=== PATIENT | male | born 1990 | race Two or more races ===

== ENCOUNTER 2019-06-25 01:48 | Emergency (ER) | payer SELFPAY ==
[~2019-06-25] VITALS: Ht 182.9 cm; Wt 98.9 kg
[2019-06-25] MEDS ORDERED: cefTRIAXone SOD 1,000 MG VL IM ONE (04:15)
[2019-06-25] MEDS ORDERED: LIDOCAINE 1% HCL (LOCAL ANESTH.) INJ 20ML MDV IJ ONE ×2 (04:15→05:00)
[2019-06-25] MEDS ORDERED: TETANUS-DIPTH-ACEL PERTUSSIS 0.5ML SYRG IM ONE (04:15)
[2019-06-25 04:19] VITALS: BP 132/78
== END 2019-06-25 05:13 | disposition home or self-care (01) ==
LOC: ER 01:49
DX: S61.411A Laceration without foreign body of right hand, initial encounter (principal); W25.XXXA Contact with sharp glass, initial encounter; Y93.89 Activity, other specified; Y99.8 Other external cause status; Y92.89 Other specified places as the place of occurrence of the external cause
CPT/HCPCS: 12004; 73130; 90471; 90715; 96372; 99283; J0696; J2001